=== PATIENT | female | born 1970 | race Caucasian/White ===

== ENCOUNTER 2025-01-15 09:28 | Emergency (ER) | payer OTHER, SELFPAY ==
[2025-01-15 09:30] VITALS: BP 222/105
[2025-01-15 09:55] LABS: Hematocrit 42.5 % (37.0-47.0); Hemoglobin 14.7 g/dL (12.0-16.0); Mean Corp Hgb Conc. 34.6 g/dL (33.0-37.0); Mean Corpuscular Volume 81.3 fL (81.0-99.0); Nucleated Red Blood Cells % 0 %; Platelet Count 250 10^3/uL (130-400); Red Cell Dist. Width 12.7 % (11.5-14.5)
--- NOTE | 2025-01-15 09:58 | ED.GENMED ---
History of Present Illness
General
Chief Complaint: Eye Problems
Source: patient
Exam Limitations: none
Time Seen by Provider: 01/15/25 09:51
History of Present Illness
History of Present Illness:
54-year-old female sudden visual loss right eye. Started with floaters. This was followed by diffuse blurry vision. Cannot count fingers. No eye pain. No other neurologic symptoms. Remote history of vitreous hemorrhage and scarring 30 years
ago.
Past History
Past History
ED Past Medical History: Asthma (only when gets Bronchitis. ), HTN, NIDDM (Diet controlled), Hypothyroidism and Other (PCOS, Partial blind left eye)
ED Past Surgical History: and Gynecological (Ovarian cyst)
Social History
Tobacco: Non-smoker
Alcohol: Occasional
Personal:
Living: with family
Phy Exam
Physical Exam
Physical Exam:
GENERAL: Alert and oriented in no apparent distress, but clearly upset
EYE: Orbits normal. Extraocular muscles intact. Pupils react normally. Difficult to evaluate the disc
NECK: Supple
CARDIAC: Regular rate and rhythm without any obvious murmurs.
LUNGS: No distress
NEUROLOGICAL: Alert and oriented , grossly non-focal. Speech normal. No facial droop
SKIN: Warm and dry
PSYCH: Normal and appropriate interaction.
Course
Orders/Labs/Results
Orders:
Orders
01/15/25 09:48
Complete Blood Count/With Diff Urgent
Comprehensive Metabolic Panel Urgent
Abnormal Lab Results
01/15/25
09:48
Sodium 132 L mmol/L
(135-145)
Creatinine 0.5 L mg/dL
(0.6-1.0)
Glucose 364 H mg/dl
(70-99)
01/15/25 09:48
01/15/25 09:48
Vital Signs
Initial and Last Documented VS:
Initial Vital Signs
Temp Pulse Resp BP Pulse Ox
98.0 F 103 16 222/105 98
01/15/25 09:30 01/15/25 09:30 01/15/25 09:30 01/15/25 09:30 01/15/25 09:30
Last Documented Vital Signs
Temp Pulse Resp BP Pulse Ox
98.0 F 85 18 186/92 98
01/15/25 09:30 01/15/25 10:10 01/15/25 10:10 01/15/25 10:10 01/15/25 10:10
MDM/Problems Addressed
Differential Diagnosis Includes:
This clinically is a primary right eye issue. Nothing to support central neurologic issue. Feel her best care would be to have an immediate ophthalmology exam. Luckily, Dr. Barnett can see this patient immediately and is at the corner of [place]. She will be escorted there.
*Pulse Oximetry
SaO2: 98
Oxygen Mode of Delivery: Room air
Patient hypoxic: no (98)
*Critical Care Note
Total Time (30-74mins, 75-104mins- exclusive of procedures): Not Applicable
Update Note
Update Note:
0957. Immediately after exam packs placed to ophthalmology.
1007... bp 182/96
1003... Ophthalmology can see immediately. We will escort her to the office. No indication for stat CT at this time. She has no other neurologic symptoms. This clearly appears to be a primary right eye visual issue.
ED Attending Note
-
Portions of this chart may have been created with voice recognition software.� Occasional wrong word or��sound alike� substitutions may have occurred due to the inherent limitations of voice recognition software.
Discharge Plan
Departure
Patient Disposition: Home (Routine Discharge)
Date of Disposition: 01/15/25
Time of Disposition: 10:03
Patient with high blood pressure during this ER visit?: Yes
Discharge Problem:
Sudden right eye visual loss
Instructions: BLOOD PRESSURE
Prescriptions:
No Action
levothyroxine [Synthroid] 100 MCG tablet
100 mcg PO
meclizine 25 mg tablet
25 mg PO TID PRN (Reason: dizziness) Qty: 15 0RF
Referrals:
Karri Aaron MD [Family Provider, Family Practice]
Peterson Barnett MD [Active, Ophthalmology]
Activity Restrictions/Additional Instructions:
We will escort you immediately to the ophthalmology office
Return immediately with any other issues or concerns including headache, other neurologic symptoms etc.
Interventions
Interventions:
*Risk Screen - Suicide Last Done: 01/15/25 09:30
*General Assessment Last Done: 01/15/25 09:30
*Neglect/Abuse Screening Last Done: 01/15/25 09:30
*ED COVID-19 Vaccine History Last Done: 01/15/25 09:30
*ED Influenza Vaccine History Last Done: 01/15/25 09:30
*Nursing Disposition Last Done: 01/15/25 10:10
Discharge Date and Time
Discharge Date/Time: 01/15/25 10:12
Print Language: [place]
[2025-01-15 10:10] VITALS: BP 186/92
[2025-01-15 10:37] LABS: ALT (SGPT) 23 U/L (0-35); AST (SGOT) 22 U/L (14-36); Albumin 4.7 g/dl (3.5-5.0); Alkaline Phosphatase 94 U/L (38-126); Blood Urea Nitrogen 15 mg/dl (7-17); Calcium 9.6 mg/dl (8.4-10.2); Carbon Dioxide 25 mmol/L (22-30); Chloride 98 mmol/L (98-107); Glucose 364 mg/dl (70-99); Potassium 4.4 mmol/L (3.5-5.1); Sodium 132 mmol/L (135-145); Total Protein 8.0 g/dl (6.3-8.2); eGFR > 60.00
== END 2025-01-15 10:12 | disposition home or self-care (01) ==
LOC: EMR 09:28
PROVIDERS: EMERGENCY PHYSICIAN Emergency Medicine; FAMILY PHYSICIAN Family Medicine
DX: H53.131 Sudden visual loss, right eye (principal); E11.9 Type 2 diabetes mellitus without complications; I10 Essential (primary) hypertension; J45.909 Unspecified asthma, uncomplicated; E03.9 Hypothyroidism, unspecified; E28.2 Polycystic ovarian syndrome; H54.62 Unqualified visual loss, left eye, normal vision right eye
CPT/HCPCS: 99283; 80053; 85025